=== PATIENT | male | born 1965 | race Two or more races ===

== ENCOUNTER 2019-02-25 19:44 | Emergency (ER) | payer OTHER ==
[~2019-02-25] VITALS: Ht 170.2 cm; Wt 68.0 kg
[2019-02-25 19:47] VITALS: BP 100/66
--- NOTE | 2019-02-25 20:19 | NUR ---
PT HERE FOR COUGH X 2 WEEKS. PT REPORTS SOB WITH FATIGUE WITH WALKING.
[2019-02-25] MEDS ORDERED: ALBUTEROL SULFATE 2.5 MG/3 ML ONE (20:26)
[2019-02-25] MEDS ORDERED: ALBUTEROL SULFATE 2.5 MG/3 ML NPPB ONE (20:30)
--- NOTE | 2019-02-25 21:00 | NUR ---
Patient/Caregiver given discharge instructions and they have confirmed that they understand the instructions. Patient ambulatory with steady gait.
== END 2019-02-25 21:02 | disposition home or self-care (01) ==
LOC: ED 20:56
DX: J20.8 Acute bronchitis due to other specified organisms (principal)
CPT/HCPCS: 71046; 94640; 99283; J7613